=== PATIENT | male | born 2000 | race Caucasian/White ===

== ENCOUNTER 2018-11-16 03:41 | Emergency (ER) | payer SELFPAY ==
[~2018-11-16] VITALS: Ht 175.3 cm; Wt 63.5 kg
[2018-11-16 03:52] VITALS: BP 147/100
--- NOTE | 2018-11-16 04:01 | NUR ---
PT BIB SELF FOR CHEST PAIN. PT STATES CP HAS KEPT HIM FROM SLEEPING FOR PAST 2 HOURS, BUT CP STARTED YESTERDAY AT REST. PT STATES PRESSURE PAIN AT 3/10 MID CHEST, NON RADIATING. PT DENIES SOB, RR SYMMETRICAL NON-LABORED. PT AAOX4. PT NON-DIAPHORETIC. ER MD NOTIFIED. SAFETY PRECAUTIONS IN [facility]. WILL CONTINUE TO MONITOR.
--- NOTE | 2018-11-16 04:04 | NUR ---
X-RAY AT BEDSIDE
[2018-11-16] MEDS ORDERED: KETOROLAC 60 MG/2 ML VIAL IM ONE (04:15)
[2018-11-16 04:41] VITALS: BP 129/81
== END 2018-11-16 04:39 | disposition home or self-care (01) ==
LOC: MED 03:41
DX: R07.89 Other chest pain (principal); R03.0 Elevated blood-pressure reading, without diagnosis of hypertension; F17.200 Nicotine dependence, unspecified, uncomplicated; F12.10 Cannabis abuse, uncomplicated
CPT/HCPCS: 71045; 93005; 96372; 99283; J1885; Q0092